=== PATIENT | female | born 1980 | race Caucasian/White ===

== ENCOUNTER 2018-02-12 06:56 | Day surgery (SDC) | payer BC ==
[2018-02-11 09:31] VITALS: BMI 30.2
[~2018-02-12 06:56] MED LIST: LACTATED RINGERS 1,000 ML IV SCH
[2018-02-12 07:25] VITALS: TEMP 98.4
[2018-02-12] MEDS ORDERED: LIDOCAINE 1% 20 ML VIAL (10MG/ML) FOR IV START INTRADERMA ONE (07:31)
[2018-02-12] MEDS ORDERED: fentaNYL (PF) 50 MCG/ML 2 ML AMP ONE (08:13)
[2018-02-12] MEDS ORDERED: GLYCOPYRROLATE 0.2 MG/ML 2 ML VIAL ONE (08:13)
[2018-02-12] MEDS ORDERED: PROPOFOL 10 MG/ML 20 ML VIAL IV ONE (08:13)
[2018-02-12] MEDS ORDERED: MIDAZOLAM 2 MG/2 ML VIAL ONE (08:13)
--- NOTE | 2018-02-12 08:16 | P.GSHP ---
History of Present Illness H&P Date: 02/12/18 Chief Complaint: Anemia This is a 37-year-old female referred from Dr. Gisele ravi. Patient is a safer EGD. She's had issues anemia. Patient has felt tired her recent hemoglobin was in the 7 range. She has a history of gastric bypass and marginal ulceration. Past Medical History Additional Past Medical History / Comment(s): STATES LOW HGB 7, AND LOW B/P History of Any Multi-Drug Resistant Organisms: None Reported Past Surgical History: Bariatric Surgery, Section Additional Past Surgical History / Comment(s): TONEY-N-Y, C-SEC X3 Past Anesthesia/Blood Transfusion Reactions: Previous Problems w/ Anesthesia Additional Past Anesthesia/Blood Transfusion Reaction / Comment(s): STATES ANESTHESIA WITH CSEC CAUSED FACIAL ITCHING Smoking Status: Never smoker - Past Family History Father Family Medical History: Cancer Additional Family Medical History / Comment(s): KIDNEY Medications and Allergies Home Medications Medication Instructions Recorded Confirmed Type Multivitamins, Thera [Multivitamin 1 tab PO DAILY 02/11/18 02/11/18 History (formulary)] Biotin 10,000 mcg PO DAILY 02/12/18 02/12/18 History Calcium Carbonate/Vitamin D3 1 each PO TID 02/12/18 02/12/18 History [Calcium 500-Vit D3 200 Tablet] Cyanocobalamin (Vitamin B-12) 1,000 mcg PO DAILY 02/12/18 02/12/18 History [Vitamin B-12] Folic Acid 0.4 mg PO DAILY 02/12/18 02/12/18 History Omeprazole 40 mg PO BID 02/12/18 02/12/18 History Allergies Allergy/AdvReac Type Severity Reaction Status Date / Time No Known Allergies Allergy Verified 02/11/18 09:26 Surgical - Exam Vital Signs Temp Pulse Resp BP Pulse Ox 98.4 F 65 16 115/74 99 02/12/18 07:22 02/12/18 07:22 02/12/18 07:22 02/12/18 07:22 02/12/18 07:22 - General well developed, no distress - Eyes PERRL - ENT normal pinna - Neck no masses - Respiratory normal expansion - Cardiovascular Rhythm: regular - Abdomen Abdomen: soft, non tender Assessment and Plan Assessment: Anemia, history of gastric bypass. We'll perform EGD.
--- NOTE | 2018-02-12 08:41 | P.OP ---
Date of Procedure: 02/12/18 Preoperative Diagnosis: Anemia Postoperative Diagnosis: Marginal ulcer jejunum Normal colon Procedure(s) Performed: EGD Colonoscopy Anesthesia: MAC Surgeon: Don Le Pathology: other (Marginal ulcer) Condition: stable Disposition: PACU Description of Procedure: PROCEDURE: The patient was placed on the endoscopy table in the lateral position. Digital rectal examination was performed which revealed no abnormalities. Flexible colonoscope was then placed in the patient's anus and passed throughout the entire colon. The ileocecal valve was visualized. The cecum, ascending, transverse, descending and sigmoid colon were normal. The rectum was normal as well. There were no masses, polyps or diverticula noted in the entire colon. Next, the gastroscope placed oropharynx passed in the esophagus and stomach. Scope was then placed through the gastrojejunostomy. Just below the gastrojejunostomy there was a large marginal ulcer. There is no active bleeding. There is a large area of fibropurulent material. The area was biopsied. Scope the scope was then advanced into the jejunum. There is no evidence of obstruction. Scope was then brought back the patient had a moderate size gastric pouch. The GE junction was at 40 cm. The distal esophagus appeared normal. The proximal esophagus. Normal. Scope was withdrawn for patient.
[2018-02-12 09:25] VITALS: PULSE 55; RESP 18
[2018-02-12 09:38] VITALS: BP 108/69
== END 2018-02-12 09:49 | disposition home or self-care (01) ==
LOC: ORWHC2ENDO 06:56
PROVIDERS: ATTEND Surgery
DX: K28.9 Gastrojejunal ulcer, unspecified as acute or chronic, without hemorrhage or perforation (principal); D50.9 Iron deficiency anemia, unspecified; Z98.84 Bariatric surgery status; Z79.899 Other long term (current) drug therapy
CPT/HCPCS: 81025; 88305; 45378; 43239; J2250; J3010; J2704

== ENCOUNTER 2018-04-06 07:43 | Day surgery (SDC) | payer BC ==
[2018-04-05 09:26] VITALS: BMI 30.7
[~2018-04-06 07:43] MED LIST changes: +DEXAMETHASONE SOD PHOSPHATE 10 MG/ML 1 ML VIAL IV ONE; +HYDROmorphone 0.5 MG/0.5 ML SYRINGE IVP PRN; +ONDANSETRON 4 MG/2 ML VIAL IVP ONE
[2018-04-06 08:06] VITALS: RESP 16; TEMP 97.8
[2018-04-06] MEDS ORDERED: LIDOCAINE 1% 20 ML VIAL (10MG/ML) FOR IV START INTRADERMA ONE (08:15)
[2018-04-06] MEDS ORDERED: MIDAZOLAM 2 MG/2 ML VIAL ONE (09:23)
[2018-04-06] MEDS ORDERED: PROPOFOL 10 MG/ML 20 ML VIAL IV ONE (09:23)
[2018-04-06] MEDS ORDERED: LIDOCAINE 1% INJ 10MG/ML (20 ML MDV) ONE (09:23)
[2018-04-06] MEDS ORDERED: fentaNYL (PF) 50 MCG/ML 2 ML AMP ONE (09:23)
--- NOTE | 2018-04-06 09:36 | P.GSHP ---
History of Present Illness H&P Date: 04/06/18 Chief Complaint: Peptic ulcer disease This a 37-year-old female who's had a previous gastric bypass. Patient's found have evidence of a marginal ulcer at the gastrojejunostomy. Patient presents today for reevaluation of her ulcer. Past Medical History Additional Past Medical History / Comment(s): anemia; "bleeding ulcer" History of Any Multi-Drug Resistant Organisms: None Reported Past Surgical History: Bariatric Surgery, Section Additional Past Surgical History / Comment(s): TONEY-N-Y, C-SEC X3 Past Anesthesia/Blood Transfusion Reactions: No Reported Reaction Additional Past Anesthesia/Blood Transfusion Reaction / Comment(s): STATES ANESTHESIA WITH CSEC CAUSED FACIAL ITCHING Smoking Status: Never smoker - Past Family History Father Family Medical History: Cancer Additional Family Medical History / Comment(s): KIDNEY Medications and Allergies Home Medications Medication Instructions Recorded Confirmed Type Multivitamins, Thera [Multivitamin 1 tab PO DAILY 02/11/18 04/06/18 History (formulary)] Biotin 10,000 mcg PO DAILY 02/12/18 04/06/18 History Calcium Carbonate/Vitamin D3 1 each PO TID 02/12/18 04/06/18 History [Calcium 500-Vit D3 200 Tablet] Cyanocobalamin (Vitamin B-12) 1,000 mcg PO DAILY 02/12/18 04/06/18 History [Vitamin B-12] Folic Acid 0.4 mg PO DAILY 02/12/18 04/06/18 History Omeprazole 40 mg PO BID 02/12/18 04/06/18 History Sucralfate [Carafate] 1 gm PO BID #60 tablet 02/12/18 04/06/18 Rx Allergies Allergy/AdvReac Type Severity Reaction Status Date / Time No Known Allergies Allergy Verified 04/06/18 08:58 Surgical - Exam Vital Signs Temp Pulse Resp BP Pulse Ox 97.8 F 53 L 16 102/65 100 04/06/18 08:04 04/06/18 08:04 04/06/18 08:04 04/06/18 08:04 04/06/18 08:04 - General well developed, no distress - Eyes PERRL - ENT normal pinna - Neck no masses - Respiratory normal expansion - Cardiovascular Rhythm: regular - Abdomen Abdomen: soft, non tender Assessment and Plan Assessment: Peptic ulcer disease we'll perform EGD.
--- NOTE | 2018-04-06 09:43 | P.OP ---
Date of Procedure: 04/06/18 Preoperative Diagnosis: Peptic ulcer disease Postoperative Diagnosis: Marginal ulcer at gastrojejunostomy Procedure(s) Performed: EGD Anesthesia: MAC Surgeon: Don Le Pathology: other (Marginal ulcer of gastrojejunostomy) Condition: stable Disposition: PACU Description of Procedure: The patient's placed on the endoscopy table in the lateral position. She received IV sedation. The gastroscope placed oropharynx passed in the esophagus into the stomach. The patient a previous gastric bypass. The proximal gastric pouch was small. At the level of the gastrojejunostomy there was evidence of a healed ulcer. There was no active bleeding. The ulcer area was biopsied. Scope was withdrawn there is no other evidence of ulcers. The GE junction was at 40 cm. The distal esophagus and proximal esophagus appeared normal. Scope was withdrawn for patient.
[2018-04-06 10:08] VITALS: BP 102/59; PULSE 51
== END 2018-04-06 10:46 | disposition home or self-care (01) ==
LOC: ORWHC2ENDO 07:43
PROVIDERS: ATTEND Surgery
DX: K28.9 Gastrojejunal ulcer, unspecified as acute or chronic, without hemorrhage or perforation (principal); K21.9 Gastro-esophageal reflux disease without esophagitis; Z98.84 Bariatric surgery status; Z79.899 Other long term (current) drug therapy
CPT/HCPCS: 81025; 88305; 43239; J2250; J2001; J3010; J2704

== ENCOUNTER → 2018-12-16 | Outpatient (CLI) | payer BC ==
--- NOTE | 2018-12-16 17:37 | CONS ---
CONSULTATION DATE OF SERVICE: 12/16/2018 38-year-old lady who has been evaluated in the [facility] for significant excessive daytime sleepiness. HISTORY OF PRESENT ILLNESS/ SLEEP WAKE EVALUATION: The patient referred for sleepiness her whole life. SLEEP SCHEDULE: Presently her sleep schedule from around 9 to 11 pm until 6 a.m. on weekdays and from around 9 to 11 pm to 7:30 a.m. on weekends. FALLING ASLEEP: No problem with falling asleep. No TV in bedroom. DURING SLEEP: The patient sleeps on the stomach position and occasionally snores and wakes up from sleep once when she has to go to the restroom. She has history of restless leg symptoms and she knows when her iron level goes down, she developing symptoms of restless legs. She denied any clear history of twitching of the legs and kicking during the sleep. DURING THE DAY/SLEEP WAKE EVALUATION: No history of hypnagogic hallucinations, sleep paralysis or cataplexy. In the morning, patient wakes up tired, feels sleepy. [place] Sleepiness Scale significantly increased to 14. She takes naps usually afternoon while she is taking about 2-3 caffeinated beverages during the day. PAST MEDICAL HISTORY: Positive for bleeding peptic ulcers which she developed after Dione en Y surgery in March of 2017, acid reflex. PAST SURGICAL HISTORY: Bariatric surgery, Dione en Y in March 2017. After the surgery, patient lost about 120 pounds. C-sections x3. MEDICATIONS: Omeprazole, multivitamins, Biotin, B12, iron supplement. SOCIAL HISTORY: Negative for smoking. Alcohol consumption occasional. FAMILY HISTORY: Hypertension, heart problems, hyperlipidemia, stroke, arthritis, sleep apnea, snoring, cancer, acid reflux, ulcer, diabetes, anemia. REVIEW OF SYSTEMS: Significant excessive daytime sleepiness, episodes of restless legs related to low level of iron. PHYSICAL EXAM: lady without distress. BP 104/60, HR 56, RR 14, height 5 feet 4-1/2 inches, weight 198 pounds. Body mass index 33.4, temperature 98.4, oxygen saturation at room air 100%. Oropharynx: Low position of soft palate, Mallampati 3. Small nasal passages with slight restriction of nasal breathing. Neck 14-1/2 inches in circumference. Neck Supple, no JVD. Thyroid is not palpable. LUNGS Clear to percussion and to auscultation. Good air exchange. No wheezing or rhonchi. HEART S1, S2 regular. No murmurs, gallops, or rubs. ABDOMEN: Soft and nontender. Bowel sounds are present. No organomegaly appreciated. EXTREMITIES No clubbing or cyanosis. [employer]STATION SUPERVISOR Awake, alert, and oriented X3. Cranial nerves 2 to 7 intact. There is no fasciculation or atrophy. noted. No focal deficits observed. IMPRESSION: 1. History of restless legs related to changing ferritin level and iron level. The patient knows when her iron levels down, then she develops symptoms of restless legs. 2. History of peptic ulcers with upper gastrointestinal bleeding and subsequent iron- deficiency anemia. 3. Occasional snoring. Low position of soft palate, small nasal passages, slight restriction of nasal breathing. Patient prefers to sleep on the belly. Rule out obstructive sleep apnea-hypopnea syndrome. 4. No clear history of twitching legs but with history of restless legs syndrome with a low level of ferritin high probability of periodic limb movements. 5. Significant excessive daytime sleepiness. [place] Sleepiness Scale is 14. Differential diagnosis also include hypersomnia including narcolepsy without cataplexy if above mentioned reason for excessive daytime sleepiness will be excluded. 6. Status post bariatric surgery. Dione en Y in March 2017. The patient has lost 120 pounds since surgery and then she gained 15 pounds about. 7. Status post x3. PLAN: 1. Home sleep apnea test for evaluation of patient's breathing during the sleep. 2. If home sleep apnea test will be negative for any abnormalities of respiration, polysomnography for checking patient leg movements at night with the following multiple sleep latency test for objective evaluation for symptoms of excessive daytime sleepiness. 3. Sleep hygiene with regular time in bedtime bed for at least 8 hours. 4. No driving if feeling sleepiness. Thank you very much for referring this patient for consultation. Sincerely, William Castillo MD, PhD, FAASM Diplomat of [employer]ing [employer] of [facility] [place] MMODL / IJN: [id number] /
== END ==
LOC: SLEEP 15:46
PROVIDERS: ATTEND Internal Medicine
DX: G47.10 Hypersomnia, unspecified (principal); G25.81 Restless legs syndrome; R06.89 Other abnormalities of breathing; Z87.19 Personal history of other diseases of the digestive system; Z98.84 Bariatric surgery status; Z98.890 Other specified postprocedural states; Z87.11 Personal history of peptic ulcer disease; Z86.2 Personal history of diseases of the blood and blood-forming organs and certain disorders involving the immune mechanism; Z79.899 Other long term (current) drug therapy
CPT/HCPCS: 99211

== ENCOUNTER → 2021-02-22 | Outpatient (CLI) | payer BC ==
--- NOTE | 2021-02-22 20:20 | US ---
EXAMINATION TYPE: US pelvic complete DATE OF EXAM: 02/22/2021 COMPARISON: NONE CLINICAL HISTORY: N92.0 menorrhagia. Patient is having an ablation. Heavy bleeding TECHNIQUE: . Transabdominal sonographic images of the pelvis were acquired. Date of LMP: 02/06/2021 EXAM MEASUREMENTS: Uterus: 9.2 x 3.3 x 4.1 cm Endometrial Stripe: 0.8 cm Right Ovary: 3.1 x 2.5 x 2.6 cm Left Ovary: 1.8 x 1.1 x 1.2 cm 1. Uterus: Anteverted Heterogeneous 2. Endometrium: wnl 3. Right Ovary: Multiple follicles visualized, wnl 4. Left Ovary: wnl 5. Bilateral Adnexa: wnl 6. Posterior cul-de-sac: Small amount of free fluid visualized IMPRESSION: Normal pelvic ultrasound
== END | disposition home or self-care (01) ==
LOC: RADUSWWP 16:07
PROVIDERS: ATTEND Obstetrics & Gynecology
DX: N92.0 Excessive and frequent menstruation with regular cycle (principal)
CPT/HCPCS: 76856

== ENCOUNTER 2021-03-14 06:17 | Day surgery (SDC) | payer BC ==
[2021-03-12 08:43] VITALS: BMI 29.1
--- NOTE | 2021-03-13 16:37 | P.HPOB ---
History of Present Illness H&P Date: 03/13/21 Chief Complaint: Menorrhagia with anemia Dannielle is a 40-year-old female with history of very heavy vaginal bleeding with each cycle in which she also passes tennis ball size clots. She is been anemic and was started on iron therapy. It is not very effective however due to her history of gastric bypass. She is significantly bothered by the symptoms and is requesting treatment for same. She is scheduled for a D&C with hysteroscopy and NovaSure ablation. Risks/benefits/alternatives to this procedure were reviewed with the patient in detail and all questions were answered for her prior to proceeding to the operative room. Past Medical History Past Medical History: Blood Disorder, Thyroid Disorder Additional Past Medical History / Comment(s): anemia; "bleeding ulcer". iron infusions q 4-6 months History of Any Multi-Drug Resistant Organisms: None Reported Past Surgical History: Bariatric Surgery, Section Additional Past Surgical History / Comment(s): TONEY-N-Y, C-SEC X3 Past Anesthesia/Blood Transfusion Reactions: No Reported Reaction, Motion Sickness Additional Past Anesthesia/Blood Transfusion Reaction / Comment(s): STATES ANESTHESIA WITH CSEC CAUSED FACIAL ITCHING Smoking Status: Never smoker - Past Family History Father Family Medical History: Cancer Additional Family Medical History / Comment(s): KIDNEY Medications and Allergies Home Medications Medication Instructions Recorded Confirmed Type Multivitamins, Thera [Multivitamin 1 tab PO DAILY 02/11/18 03/12/21 History (formulary)] Omeprazole 40 mg PO BID PRN 02/12/18 03/12/21 History Cyanocobalamin [Vitamin B-12 1,000 mcg SQ Q14D 03/12/21 03/12/21 History Injection] Levothyroxine Sodium [Synthroid] 50 mcg PO DAILY 03/12/21 03/12/21 History Sucralfate [Carafate] 1 gm PO BID PRN 03/12/21 03/12/21 History Allergies Allergy/AdvReac Type Severity Reaction Status Date / Time No Known Allergies Allergy Verified 03/12/21 08:29 Exam Osteopathic Statement: *. No significant issues noted on an osteopathic structural exam other than those noted in the History and Physical/Consult. - OBG Physical Exam Breast: both: normal (no masses) Abdomen: bowel sounds normal, no diffuse tenderness, no bruit present, no guarding noted, no hepatomegaly, no splenomegaly, no mass Vulva: both: normal Vagina: normal moisture, no discharge Cervix: no lesion, no discharge Uterus: normal size, normal contour Adnexa: both: normal Anus/Rectum: normal perianal skin, no rectal mass, no hemorrhoids, heme negative
[~2021-03-14 06:17] MED LIST changes: -DEXAMETHASONE SOD PHOSPHATE 10 MG/ML 1 ML VIAL IV ONE; +DEXAMETHASONE SOD PHOSPHATE 4 MG/ML 1 ML VIAL IV ONE; +LIDOCAINE 1% (10MG/ML) FOR IV START INTRADERMA PRN; +MIDAZOLAM 2 MG/2 ML VIAL IV PRN; +Pre Op ABX Message 1 EACH MISC MISCELLANE ONE
[2021-03-14] MEDS ORDERED: PROPOFOL 10 MG/ML 20 ML VIAL IV ONE (07:30)
[2021-03-14] MEDS ORDERED: MIDAZOLAM 2 MG/2 ML VIAL ONE (07:30)
[2021-03-14] MEDS ORDERED: KETOROLAC 15 MG/ML 1 ML VIAL ONE (07:30)
[2021-03-14] MEDS ORDERED: LIDOCAINE 1% INJ 10MG/ML (20 ML MDV) ONE (07:30)
[2021-03-14] MEDS ORDERED: fentaNYL (PF) 50 MCG/ML 2 ML AMP ONE (07:30)
[2021-03-14] MEDS ORDERED: GLYCOPYRROLATE 0.2 MG/ML 2 ML VIAL ONE (07:30)
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
[2021-03-14 08:25] VITALS: TEMP 97.5
[2021-03-14 08:32] VITALS: RESP 16
[2021-03-14 09:11] VITALS: PULSE 47
[2021-03-14] MEDS ORDERED: IBUPROFEN 200 MG TAB PO ONE (09:20)
[2021-03-14 09:24] VITALS: BP 105/69
== END 2021-03-14 09:56 | disposition home or self-care (01) ==
LOC: OR 06:17
PROVIDERS: ATTEND Obstetrics & Gynecology
DX: N92.0 Excessive and frequent menstruation with regular cycle (principal); D64.9 Anemia, unspecified; E07.9 Disorder of thyroid, unspecified; Z98.84 Bariatric surgery status; Z79.899 Other long term (current) drug therapy
CPT/HCPCS: 81025; 58563; J2250; J1100; J2405; J2001; J3010; J1885; J2704

== ENCOUNTER → 2021-10-30 | Outpatient (CLI) | payer BC ==
[2021-10-30 13:22] VITALS: BP 112/67; PULSE 64; RESP 18; TEMP 98.5; BMI 23.7
--- NOTE | 2021-10-30 13:32 | P.HPBAR ---
Bariatric H&P - History & Physicial H&P Date: 10/30/21 History & Physicial: Visit/CC: Patient initial contact: Initial weight: Initial weight in pounds: Height: Initial BMI: Last weight: Current weight: Current weight in pounds: Current BMI: [place] body weight (based on NIH guidelines): Excess body weight loss: The patient is a 40 year-old F who presents for Bariatric Assessment. DATE OF SERVICE: 10/30/2021 REASON FOR CONSULTATION: Status post gastric bypass HISTORY OF PRESENT ILLNESS: Dannielle Davis is a 40-year-old female with prior history of gastric bypass. She lost 150 pounds with her gastric bypass including exercise. Her surgeon was Dr. Rodrigues in 2016. She is 6 years out. Her highest weight was 303 pounds. She wanted to get down to 148 pounds. She had seen another provider Dr. Moore, 6 months for ulcers. She works out and she weight lifts and lost another 50 pounds. She uses over the counter pain medications. She still has her gallbladder. She reports troubles with her skin of her abdomen including thigh redundancy. She presents first time in consultation for management of her gastric bypass and panniculitis. She has occasional dysphagia. She reports occasional epigastric and right upper quadrant abdominal pain for over 3 months. At height of 5 feet 5.5 inches, her ideal body weight is 149 pounds. Her highest weight is 303 pounds, body mass index 49.8. She comes in 145 pounds. She has lost 158 pounds lifetime. Percent excess weight loss of 103%. Her body mass index is 23.8. She is not overweight. PAST MEDICAL HISTORY: 1. Hypothyroidism 2. Anemia 3. Gastric ulcers 4. History of gastric bypass for morbid obesity 5. Panniculitis PAST SURGICAL HISTORY: 1. Gastric bypass, 2016 2. x 3 HOME MEDICATIONS: Home Medications Medication Instructions Recorded Confirmed Multivitamins, Thera [Multivitamin 1 tab PO DAILY 02/11/18 11/28/21 (formulary)] Levothyroxine Sodium [Synthroid] 50 mcg PO DAILY 03/12/21 11/28/21 Previous Rx's Medication Instructions Recorded Omeprazole [PriLOSEC] 40 mg PO BID #60 cap 11/18/21 Sucralfate [Carafate] 1 gm PO BID #60 tablet 11/18/21 ALLERGIES: Allergies Allergy/AdvReac Type Severity Reaction Status Date / Time No Known Allergies Allergy Verified 11/14/21 10:41 SOCIAL HISTORY: Denies tobacco use. FAMILY HISTORY: No family history of ulcerative colitis disease or Crohn's disease. Family history of morbid obesity. No lupus in the family. No reports of stomach or esophageal cancer. She reports her grandmother had obesity. REVIEW OF ORGAN SYSTEMS: CONSTITUTIONAL: At height of 5 feet 5.5 inches, her ideal body weight is 149 pounds. Her highest weight is 303 pounds, body mass index 49.8. She comes in 145 pounds. She has lost 158 pounds lifetime. Percent excess weight loss of 103%. Her body mass index is 23.8. She is not overweight. HEENT: Denies any active troubles with vision or hearing. ENDOCRINE: Denies diabetes. Has hypothyroidism. CARDIOVASCULAR: Denies past reports of palpitations or heart attacks or chest pain. RESPIRATORY: Denies daytime somnolence and snores. GASTROINTESTINAL: Denies any bright red blood per rectum. No diarrhea. No constipation. Has dysphagia. Has ulcers. GENITOURINARY: Denies bladder urgency. No recent blood in urine MUSCULOSKELETAL: Has lower back pain and joint pain. Denies history of bilateral lower extremity edema. NEURO: Denies chronic migraines. No seizure disorders. PSYCH: Denies depression. No suicidal ideation. RHEUMATOLOGIC: No lupus. No rheumatoid arthritis. HEMATOLOGIC: Denies any abnormal bleeding or bruising. Denies past history of DVTs. Has anemia. SKIN: Has panniculitis. No skin cancer. PHYSICAL EXAM: VITAL SIGNS: Height 5 foot 5.5 inches, weight 145 pounds. BMI 23.8 Vital Signs Temp 98.5 F 10/30/21 13:09 Pulse 64 10/30/21 13:09 Resp 18 10/30/21 13:09 BP 112/67 10/30/21 13:09 Pulse Ox GENERAL: Well-developed in no acute distress. HEENT: No scleral icterus. Extraocular movements grossly intact. Hears conversational speech. No nasal drainage. NECK: Supple without lymphadenopathy. CHEST: Nonlabored respirations with equal bilateral excursions. CARDIOVASCULAR: Regular rate and regular rhythm. Distal 2+ pulses. ABDOMEN: Obese, soft, nontender, nondistended. Has moderate redundant skin with panniculitis and panniculosis of the thighs. MUSCULOSKELETAL: No clubbing, cyanosis. NEURO: No focal or lateralizing signs. Cranial nerves 2 through 12 grossly within normal limits. PSYCH: Appropriate affect. Alert and oriented to person, place and time. SKIN: Good skin turgor. Well perfused. Skin redundancy of the thighs. ASSESSMENT: 1. Hypothyroidism 2. Anemia 3. Gastric ulcers 4. History of gastric bypass for morbid obesity 5. Panniculitis 6. Prior morbid obesity, BMI down from 49.8 to 23.8 PLAN: 1. Recommend bariatric labs due to lack of follow-up. 2. Recommend upper endoscopy for history of gastric ulcers. She is elevated risk for perforation 3. She still has her gallbladder. Recommend ultrasound of the gallbladder. Thank you for this consultation. Past Medical History Additional Past Medical History / Comment(s): anemia; "bleeding ulcer" History of Any Multi-Drug Resistant Organisms: None Reported Past Surgical History: Bariatric Surgery, Section Additional Past Surgical History / Comment(s): TONEY-N-Y, C-SEC X3 Past Anesthesia/Blood Transfusion Reactions: No Reported Reaction Additional Past Anesthesia/Blood Transfusion Reaction / Comm: STATES ANESTHESIA WITH CSEC CAUSED FACIAL ITCHING Past Psychological History: No Psychological Hx Reported Past Alcohol Use History: Occasional Past Drug Use History: None Reported - Past Family History Father Family Medical History: Cancer Additional Family Medical History / Comment(s): KIDNEY Results - Labs 10/30/21 13:56 10/30/21 13:56 Bariatric Checklist Checklist: Plan: Checklist: EGD: 1. Hiatal hernia: 2. H. Pylori: HgbA1c: Vitamin D: Smoking: Never smoker Primary care physician referral: Psychiatry clearance: Cardiology clearance: Sleep study: Diet journal: VTE risk score: VTE risk level: Rehab needs at discharge:
[2021-10-30 14:39] LABS: Partial Thromboplastin Time 25.5 sec (22.0-30.0)
[2021-10-30 19:16] LABS: HCT 38.1 % (37.2-46.3); HGB 12.2 g/dL (12.0-15.0); MCH 29.7 pg (27.0-32.0); MCV 92.7 fL (80.0-97.0); Mean Platelet Volume 9.6 fL (9.5-12.2); NRBC Per 100 WBC 0 /100 WBCS (0.0-0.0); Platelet Count 232 X 10*3/uL (140-440); RBC 4.11 X 10*6/uL (4.10-5.20); RDW 12.6 % (11.5-14.5); WBC 7.01 X 10*3/uL (4.50-10.00)
[2021-10-30 20:53] LABS: % Iron Saturation 27.22 (12.00-45.00); ALT 63 U/L (8-44); AST 37 U/L (13-35); African American GFR (CKD) 114.9 (60.0-200.0); Albumin 4.5 g/dL (3.8-4.9); Alkaline Phosphatase 61 U/L (41-126); BUN/Creat Ratio 14.12 Ratio (12.00-20.00); Blood Urea Nitrogen 10.7 mg/dL (9.0-27.0); Calcium 9.2 mg/dL (8.7-10.3); Carbon Dioxide 22.5 mmol/L (20.0-27.5); Chloride 104 mmol/L (96-109); Globulin 2.2 g/dL (1.6-3.3); Glucose 92 mg/dL (70-110); Iron 82 ug/dL (50-170); Magnesium 2.3 mg/dL (1.5-2.4); Non-African American GFR(CKD) 99.1 (60.0-200.0); Phosphorus 4.4 mg/dL (2.4-5.1); Potassium 4.1 mmol/L (3.5-5.5); Sodium 141 mmol/L (135-145); Total Iron Binding Capacity 302 ug/dL (228-460); Total Protein 6.7 g/dL (6.2-8.2)
[2021-10-30 22:54] LABS: Chol/HDL Ratio 2.43 Ratio; LDL Cholesterol,Calculated 84.9 mg/dL (0.0-131.0); VLDL Calculation 13.38 mg/dL (5.00-40.00)
[2021-11-01 12:35] LABS: Zinc, Serum 64 ug/dL (60-130)
[2021-11-04 06:50] LABS: Vitamin A 45 ug/dL (38-106)
[2021-11-04 12:39] LABS: Vit B1(Thiamine) 71 ug/L (38-122)
[2021-11-05 08:29] LABS: Selenium 141 mcg/L (63-160)
== END ==
LOC: BARWHC3 12:27
PROVIDERS: ATTEND Surgery Plastic and Reconstructive Surgery
DX: Z09 Encounter for follow-up examination after completed treatment for conditions other than malignant neoplasm (principal); E03.9 Hypothyroidism, unspecified; D64.9 Anemia, unspecified; K25.9 Gastric ulcer, unspecified as acute or chronic, without hemorrhage or perforation; Z98.84 Bariatric surgery status; M79.3 Panniculitis, unspecified; Z79.890 Hormone replacement therapy
CPT/HCPCS: 36415; 80053; 80061; 82306; 82525; 82607; 82728; 82746; 83036; 83540; 83550; 83735; 83970; 84100; 84134; 84255; 84425; 84443; 84590; 84630; 85027; 85610; 85730; 99202

== ENCOUNTER → 2021-11-14 | Outpatient (CLI) | payer BC ==
[2021-11-15 13:08] LABS: Coronavirus SARS CoV-2 Not Detected (Not Detected)
== END | disposition home or self-care (01) ==
LOC: LABWHC1 16:05
PROVIDERS: ATTEND Surgery Plastic and Reconstructive Surgery
DX: Z01.812 Encounter for preprocedural laboratory examination (principal); Z20.822 Contact with and (suspected) exposure to COVID-19
CPT/HCPCS: U0003; C9803

== ENCOUNTER → 2021-11-15 | Outpatient (CLI) | payer BC ==
--- NOTE | 2021-11-15 07:42 | US ---
EXAMINATION TYPE: US gallbladder DATE OF EXAM: 11/15/2021 COMPARISON: NONE CLINICAL HISTORY: R10.84 ; R94.5. Intermittent RUQ pain and N/V x couple years EXAM MEASUREMENTS: Liver Length: 14.2 cm Gallbladder Wall: 0.3 cm CBD: 0.5 cm Right Kidney: 10.6 x 5.7 x 4.4 cm Pancreas: visualized portions wnl, limited by overlying midline bowel gas Liver: 1.8cm hyperechoic area right lobe Gallbladder: borderline hydropic Evidence for sonographic Sneed's sign: no CBD: wnl Right Kidney: wnl IMPRESSION: Probable hemangioma right hepatic lobe can be confirmed with CAT scan.
== END | disposition home or self-care (01) ==
LOC: RADUSWWP 06:56
PROVIDERS: ATTEND Surgery Plastic and Reconstructive Surgery
DX: R93.2 Abnormal findings on diagnostic imaging of liver and biliary tract (principal)
CPT/HCPCS: 76705

== ENCOUNTER 2021-11-18 08:38 | Day surgery (SDC) | payer BC ==
[2021-11-14 10:48] VITALS: BMI 24.4
--- NOTE | 2021-11-18 07:50 | P.GSHP ---
History of Present Illness H&P Date: 11/18/21 CHIEF COMPLAINT: GERD HISTORY OF PRESENT ILLNESS: The patient is a 41-year-old female who presents reports gastroesophageal reflux disease. Upper endoscopy was offered for further evaluation and management. PAST MEDICAL HISTORY: Please see list. PAST SURGICAL HISTORY: Please see list. MEDICATIONS: Please see list. ALLERGIES: Please see list. SOCIAL HISTORY: No illicit drug use FAMILY HISTORY: No reports of Crohn disease or ulcerative colitis. REVIEW OF ORGAN SYSTEMS: CONSTITUTIONAL: No reports of fevers or chills. GI: Denies any blood in stools or constipation. PHYSICAL EXAM: VITAL SIGNS: Stable GENERAL: Well-developed and pleasant in no acute distress. HEENT: No scleral icterus. Extraocular movements grossly intact. Moist buccal mucosa. NECK: Supple without lymphadenopathy. CHEST: Unlabored respirations. Equal bilateral excursions. CARDIOVASCULAR: Regular rate and rhythm. Distal 2+ pulses. ABDOMEN: Soft, nondistended. MUSCULOSKELETAL: No clubbing, cyanosis, or edema. ASSESSMENT: 1. Gastroesophageal reflux disease PLAN: 1. Recommend proceeding with an upper endoscopy Past Medical History Past Medical History: Thyroid Disorder Additional Past Medical History / Comment(s): anemia; "bleeding ulcer" History of Any Multi-Drug Resistant Organisms: None Reported Past Surgical History: Bariatric Surgery, Section Additional Past Surgical History / Comment(s): OTNEY-EN-Y, C-SEC X3 Past Anesthesia/Blood Transfusion Reactions: No Reported Reaction Additional Past Anesthesia/Blood Transfusion Reaction / Comment(s): STATES ANESTHESIA WITH CSEC CAUSED FACIAL ITCHING Past Psychological History: No Psychological Hx Reported Smoking Status: Never smoker Past Alcohol Use History: Occasional Past Drug Use History: None Reported - Past Family History Father Family Medical History: Cancer Additional Family Medical History / Comment(s): KIDNEY Medications and Allergies Home Medications Medication Instructions Recorded Confirmed Type Multivitamins, Thera [Multivitamin 1 tab PO DAILY 02/11/18 11/14/21 History (formulary)] Levothyroxine Sodium [Synthroid] 50 mcg PO DAILY 03/12/21 11/14/21 History Allergies Allergy/AdvReac Type Severity Reaction Status Date / Time No Known Allergies Allergy Verified 11/14/21 10:41
[~2021-11-18 08:38] MED LIST changes: -DEXAMETHASONE SOD PHOSPHATE 4 MG/ML 1 ML VIAL IV ONE; -HYDROmorphone 0.5 MG/0.5 ML SYRINGE IVP PRN; -MIDAZOLAM 2 MG/2 ML VIAL IV PRN; -ONDANSETRON 4 MG/2 ML VIAL IVP ONE; -Pre Op ABX Message 1 EACH MISC MISCELLANE ONE
[2021-11-18 09:08] VITALS: TEMP 97.1
[2021-11-18] MEDS ORDERED: PROPOFOL 10 MG/ML 20 ML VIAL IV ONE (09:37)
[2021-11-18] MEDS ORDERED: LIDOCAINE 1% INJ 10MG/ML (20 ML MDV) ONE (09:37)
--- NOTE | 2021-11-18 09:52 | P.PCN ---
Date of Procedure: 11/18/21 Description of Procedure: PREOPERATIVE DIAGNOSES: 1. Epigastric abdominal pain. 2. Nausea and vomiting. 3. History of gastric bypass. 4. History of gastric ulcers. POSTOPERATIVE DIAGNOSES: 1. Gastrojejunal ulcers with partial obstruction 2. Esophageal ulcer with bleeding 3. Gastritis PROCEDURE PERFORMED: Esophagogastrojejunoscopy. SURGEON: Arlyn Garcia MD ANESTHESIA: MAC. INDICATIONS: The patient is a 41-year-old male with prior history of Dione-en-Y gastric bypass. In the last several weeks, she has had intermittent nausea and vomiting, particularly of the epigastric abdominal pain. With her history of Dione-en-Y gastric bypass, upper endoscopy was offered for further evaluation and management. DESCRIPTION: Patient was brought to the endoscopy suite and laid in the left lateral decubitus position. After adequate IV sedation, a bite block was placed. An Olympus gastroscope was passed along the posterior oropharynx down to the distal esophagus where the squamocolumnar junction was found at approximately 36 cm from the incisors. Her anastomosis was found at 40 cm, consistent with approximately 4 cm gastric pouch. The scope was advanced 60 cm from the incisors. No evidence of foreign body was found. Multiple and severe marginal and active gastrojejunal ulcerations were encountered. The GI tract was desufflated. The patient tolerated the procedure well. FINDINGS: 1. Multiple large acute gastrojejunal ulcerations with partial obstruction. 2. No foreign body found along the anastomosis. 3. Esophageal ulcer with bleeding PLAN: 1. Carafate 1 g twice a day for 4 weeks 2. Omeprazole 40 mg twice daily for 4 weeks 3. Repeat upper endoscopy in one month Plan - Discharge Summary Discharge Rx Participant: No New Discharge Prescriptions: New Omeprazole [PriLOSEC] 40 mg PO BID #60 cap Sucralfate [Carafate] 1 gm PO BID #60 tablet Continue Multivitamins, Thera [Multivitamin (formulary)] 1 tab PO DAILY Levothyroxine Sodium [Synthroid] 50 mcg PO DAILY Discharge Medication List Multivitamins, Thera [Multivitamin (formulary)] 1 tab PO DAILY 02/11/18 [History] Levothyroxine Sodium [Synthroid] 50 mcg PO DAILY 03/12/21 [History] Omeprazole [PriLOSEC] 40 mg PO BID #60 cap 11/18/21 [Rx] Sucralfate [Carafate] 1 gm PO BID #60 tablet 11/18/21 [Rx] Follow up Appointment(s)/Referral(s): [facility] [NON-STAFF] - 11/27/21 Patient Instructions/Handouts: Peptic Ulcer (GEN), Esophagitis (DC), Gastritis (GEN), Diet for Stomach Ulcers and Gastritis (GEN) Activity/Diet/Wound Care/Special Instructions: AVOID ibuprofen, Aleve, naproxen, aspirin, Excedrin, Motrin for 4 weeks Discharge Disposition: HOME SELF-CARE
[2021-11-18 10:14] VITALS: BP 108/70; PULSE 61; RESP 18
== END 2021-11-18 10:20 | disposition home or self-care (01) ==
LOC: ORWHC2ENDO 08:38
PROVIDERS: ATTEND Surgery Plastic and Reconstructive Surgery
DX: K21.9 Gastro-esophageal reflux disease without esophagitis (principal); E07.9 Disorder of thyroid, unspecified; Z79.890 Hormone replacement therapy
CPT/HCPCS: 43235; 81025; J2001; J2704

== ENCOUNTER → 2021-11-19 | Outpatient (CLI) | payer BC ==
--- NOTE | 2021-11-19 12:35 | NM ---
EXAMINATION TYPE: NM hepatobiliary w EF DATE OF EXAM: 11/19/2021 COMPARISON: Ultrasound 11/15/2021 HISTORY: 41-year-old female R10.11, right upper quadrant pain TECHNIQUE: After the intravenous administration of 4.0 mCi Tc 99m Mebrofenin hepatobiliary scintigrap hy is performed. Immediate images post injection. FINDINGS: There is satisfactory initial accumulation of tracer by the liver. The gallbladder is visualized wit hin 6 minutes. The small bowel activity is noted within 10 minutes. There are some spontaneous empty ing of the gallbladder noted during the first 60 minutes. A delayed 90 minute image was performed and after adequate gallbladder visualization, 8 ounces of oral ensure plus is given to mimic CCK and gal lbladder ejection fraction is calculated at 58 %, in the normal range. IMPRESSION: 1. Spontaneous partial emptying of the gallbladder during the first 60 minutes of imaging. Findings m ay reflect some degree of underlying gallbladder dysfunction. 2. No scintigraphic evidence for acute cholecystitis. Gallbladder ejection fraction is measured at 58 % in the normal range.
== END | disposition home or self-care (01) ==
LOC: RADNMMAIN 07:00
PROVIDERS: ATTEND Surgery Plastic and Reconstructive Surgery
DX: R10.84 Generalized abdominal pain (principal); R94.5 Abnormal results of liver function studies
CPT/HCPCS: 78226; A9537

== ENCOUNTER → 2021-11-27 | Outpatient (CLI) | payer BC ==
[2021-11-27 14:32] VITALS: BP 98/64; PULSE 55; RESP 16; TEMP 97.6; BMI 25.0
--- NOTE | 2021-11-27 14:46 | P.BASOAP ---
Subjective Progress Note Date: 11/27/21 DATE OF SERVICE: 11/27/2021 CHIEF COMPLAINT: Status post gastric bypass HISTORY OF PRESENT ILLNESS: Dannielle Davis is a 40-year-old female status post gastric bypass, [address] Rodrigues. She is 6 years out. She reports abdominal pain of the epigastrium including troubles with swallowing textured foods. She is 1 week on her medications. She has a large ulcer. She has gained almost 10 pounds in 1 month. At height of 5 feet 5.5 inches, her ideal body weight is 149 pounds. Her highest weight is 303 pounds, body mass index 49.8. She comes in 153 pounds from 145 pounds, 1 month ago. She has gained 8 pounds in 1 month. She has lost 150 pounds lifetime. Percent excess weight loss of 98%. Her body mass index is 25.1. She is 4 pounds overweight. PAST MEDICAL HISTORY: 1. Morbid obesity due to excess calories, BMI 49.8 to 25.1 2. Anemia 3. Gastric ulcers 4. History of gastric bypass for morbid obesity 5. Panniculitis 6. Hypothyroidism PAST SURGICAL HISTORY: 1. Gastric bypass, 2015 2. x 3 HOME MEDICATIONS: Home Medications Medication Instructions Recorded Confirmed Multivitamins, Thera [Multivitamin 1 tab PO DAILY 02/11/18 11/28/21 (formulary)] Levothyroxine Sodium [Synthroid] 50 mcg PO DAILY 03/12/21 11/28/21 Previous Rx's Medication Instructions Recorded Omeprazole [PriLOSEC] 40 mg PO BID #60 cap 11/18/21 Sucralfate [Carafate] 1 gm PO BID #60 tablet 11/18/21 ALLERGIES: Allergies Allergy/AdvReac Type Severity Reaction Status Date / Time No Known Allergies Allergy Verified 11/14/21 10:41 SOCIAL HISTORY: Denies tobacco use. FAMILY HISTORY: No family history of ulcerative colitis disease or Crohn's disease. Family history of morbid obesity. No lupus in the family. No reports of stomach or esophageal cancer. She reports her grandmother had obesity. REVIEW OF ORGAN SYSTEMS: CONSTITUTIONAL: At height of 5 feet 5.5 inches, her ideal body weight is 149 pounds. Her highest weight is 303 pounds, body mass index 49.8. She comes in 145 pounds. She has lost 158 pounds lifetime. Percent excess weight loss of 103%. Her body mass index is 23.8. She is not overweight. HEENT: Denies any active troubles with vision or hearing. ENDOCRINE: Denies diabetes. Has hypothyroidism. CARDIOVASCULAR: Denies past reports of palpitations or heart attacks or chest pain. RESPIRATORY: Denies daytime somnolence and snores. GASTROINTESTINAL: Denies any bright red blood per rectum. No diarrhea. No constipation. Has dysphagia. Has ulcers. GENITOURINARY: Denies bladder urgency. No recent blood in urine MUSCULOSKELETAL: Has lower back pain and joint pain. Denies history of bilateral lower extremity edema. NEURO: Denies chronic migraines. No seizure disorders. PSYCH: Denies depression. No suicidal ideation. RHEUMATOLOGIC: No lupus. No rheumatoid arthritis. HEMATOLOGIC: Denies any abnormal bleeding or bruising. Denies past history of DVTs. Has anemia. SKIN: Has panniculitis. No skin cancer. PHYSICAL EXAM: VITAL SIGNS: Height 5 foot 5.5 inches, weight 153 pounds. BMI 25.1 Vital Signs Temp 97.6 F 11/27/21 14:29 Pulse 55 L 11/27/21 14:29 Resp 16 11/27/21 14:29 BP 98/64 11/27/21 14:29 Pulse Ox GENERAL: Well-developed in no acute distress. HEENT: No scleral icterus. Extraocular movements grossly intact. Hears conversational speech. No nasal drainage. NECK: Supple without lymphadenopathy. CHEST: Nonlabored respirations with equal bilateral excursions. CARDIOVASCULAR: Regular rate and regular rhythm. Distal 2+ pulses. ABDOMEN: Obese, soft, nontender, nondistended. Has moderate redundant skin with panniculitis and panniculosis of the thighs. MUSCULOSKELETAL: No clubbing, cyanosis. NEURO: No focal or lateralizing signs. Cranial nerves 2 through 12 grossly within normal limits. PSYCH: Appropriate affect. Alert and oriented to person, place and time. SKIN: Good skin turgor. Well perfused. Skin redundancy of the thighs. LABS: Reviewed. LFTs elevated. EGD FINDINGS: 1. Multiple large acute gastrojejunal ulcerations with partial obstruction. 2. No foreign body found along the anastomosis. 3. Esophageal ulcer with bleeding STUDIES: HIDA scan independently reviewed with ejection fraction at 58%, normal. This is my independent interpretation. Ultrasound of the gallbladder independently reviewed without gallstones or polyps. This is my independent interpretation. ASSESSMENT: 1. Morbid obesity due to excess calories, BMI 49.8 to 25.1 2. Anemia 3. Gastric ulcers 4. History of gastric bypass for morbid obesity 5. Panniculitis 6. Hypothyroidism 7. Esophageall ulcers with bleeding 8. Large acute gastrojejunal ulcerations with partial obstruction. PLAN: 1. She has large ulcers. Recommend repeat upper endoscopy in 1 month. 2. She has elevated LFTs, continue to monitor. Objective - Vital Signs Vital signs: Vital Signs Temp 97.6 F 11/27/21 14:29 Pulse 55 L 11/27/21 14:29 Resp 16 11/27/21 14:29 BP 98/64 11/27/21 14:29 Pulse Ox Intake & Output 11/26/21 11/27/21 11/27/21 18:59 06:59 18:59 Weight 69.4 kg Assessment/Plan Plan: Date: 11/27/21 Initial Weight: 65.771 kg Initial BMI: 23.7 Current Weight: 69.4 kg Current BMI: 25.0 Type of Surgery: Total Volume in Band: Previous Volume: Volume Removed: Volume Added: Band Size:
== END ==
LOC: BARWHC3 14:13
PROVIDERS: ATTEND Surgery Plastic and Reconstructive Surgery
DX: E66.01 Morbid (severe) obesity due to excess calories (principal); Z68.25 Body mass index [BMI] 25.0-25.9, adult; D64.9 Anemia, unspecified; K25.9 Gastric ulcer, unspecified as acute or chronic, without hemorrhage or perforation; M79.3 Panniculitis, unspecified; E03.9 Hypothyroidism, unspecified; Z98.84 Bariatric surgery status; K22.11 Ulcer of esophagus with bleeding
CPT/HCPCS: 99211